=== PATIENT | male | born 1990 | race Hispanic/Latino ===

== ENCOUNTER 2023-06-30 08:09 | Emergency (ER) | payer OTHER ==
[~2023-06-30] VITALS: Ht 175.3 cm; Wt 86.2 kg
[2023-06-30] MEDS ORDERED: BACITRACIN 1 EACH PACKET TP ONE (08:58)
[2023-06-30] MEDS ORDERED: DIPH,PERTUSS(ACELL),TET VAC/PF 0.5 ML VIAL IM ONE (09:00)
[2023-06-30 09:50] VITALS: BP 137/71; PULSE 76; RESP 18; O2SAT 99
== END 2023-06-30 10:12 | disposition home or self-care (01) ==
LOC: EDH 08:09
DX: S61.411A Laceration without foreign body of right hand, initial encounter (principal); J45.909 Unspecified asthma, uncomplicated; W01.0XXA Fall on same level from slipping, tripping and stumbling without subsequent striking against object, initial encounter; Y93.E1 Activity, personal bathing and showering; Y92.89 Other specified places as the place of occurrence of the external cause; Y99.8 Other external cause status
CPT/HCPCS: 12002; 90471; 90715

== ENCOUNTER 2025-01-22 12:42 | Emergency (ER) | payer SELFPAY ==
[~2025-01-22] VITALS: Ht 172.7 cm; Wt 84.4 kg
--- NOTE | 2025-01-22 12:58 | ERN ---
General Chief Complaint: Ankle Problem Stated Complaint: RIGHT ANKLE SPRAIN Time Seen by MD: 12:45 Time Seen by Midlevel: 12:45 Source: patient History of Present Illness Initial Comments The patient is a 34-year-old male presenting to the emergency department with right ankle pain. The patient states he accidentally rolled his right ankle. T his morning his pain increased and was unable to bear weight is a wanted further evaluation. Denies any other injury Allergies: Coded Allergies: No Known Drug Allergies (Unverified Allergy, Unknown, 06/30/23) Past Medical History Past Medical History: No Pertinent History, Asthma Past Surgical History: None ROS Dictation CONSTITUTIONAL: Negative except for HPI HEAD/FACE: Negative except for HPI EENT: Negative except for HPI RESPIRATORY: Negative except for HPI GASTROINTESTINAL/ABDOMINAL: Negative except for HPI GENITOURINARY: Negative except for HPI MUSCULOSKELETAL: Negative except for HPI INTEGUMENTARY: Negative except for HPI NEUROLOGICAL/PSYCH: Negative except for HPI HEMATOLOGIC/LYMPHATIC: Negative except for HPI All Systems Negative, Except as noted above. 13 point review of systems assessed and all negative except for above. Physical Exam Physical Exam Dictation Vital Signs reviewed General Appearance: Alert, oriented x 3, no acute distress, well developed, nourished. Head and Face: non-traumatic. Eyes: PERRL, pink conjunctivas, eyelid no trauma, anterior chamber with arcus senilis. Ears: Pinnas intact and no signs of trauma or erythema ear canals clear and no discharge TM no erythema Nose: No discharge, no bleeding. Oropharynx: Mouth normal, tongue pink, pharynx clear,no erythema, tonsils no exudates, no abscesses noted, mucous membrane moist Neck: Supple, non-tender, no thyromegaly, no masses, no JVD, no bruits Breast:Deferred Chest:No tenderness, no crepitus, no paradoxical movement, no retractions Lungs:Clear, well-ventilated, symmetric, no rales, no wheezing, no rhonchi, no stridor, good breath sounds bilaterally Heart: Regular rate, regular rhythm, no murmur, no gallops Vascular: no peripheral edema, Abdomen: Soft, positive bowel sounds, nondistended, no guarding, nontender, no rebound, no masses no hepatomegaly, no splenomegaly, no Cotton's sign, no hernias. Rectal: Deferred Genital: Deferred Neurological: Normal speech, motor function intact, sensory function intact Musculoskeletal: Neck nontender, full range of motion, back nontender, full range of motion, Extremities: Tenderness over the right lateral malleolus, normal capillary refill, 2+ DP, PT pulses Skin: Color pink, dry, no turgor, no rash, no lacerations, no abrasions, no contusions. Lymphatic: Deferred MDM Patient is a 34-year-old male presenting to the ER with right ankle pain following an eversion injury. He has some tenderness over the right lateral malleolus however extremity is neurovascularly intact with normal capillary refill. X-ray of the right ankle and right foot does not show any evidence of an acute fracture or dislocation. The patient will be discharged home with supportive management ED Course Orders Procedure Category Date Status Time Ankle Comp 3vws Rt RAD 01/22/25 Resulted 12:52 Foot Comp 3+Vws Rt RAD 01/22/25 Resulted 12:52 Apply Raffi Wrap (Er) CPOE 01/22/25 Transmitted 13:58 Crutches SHARIF 01/22/25 Complete 13:58 Vital Signs Date Time Temp Pulse Resp B/P (MAP) Pulse Ox O2 Delivery O2 Flow Rate FiO2 01/22/25 14:05 97.7 54 14 148/87 98 Room Air* 0 21 01/22/25 12:46 97.7 54 14 148/83 98 Room Air 0 [facility] [address] [place] [address] [id number] IMAGING REPORT Signed PATIENT: STEPHANIE GARCIA MR#: [id number] : 1990 SEX: M AGE: 34 LOCATION: [facility] ORDER 125 STATUS: REG ER [facility] REPORT#: [id number] SERVICE 1252 REASON: r/o fracture ORDERING PHYSICIAN: MANNY DU PROCEDURE: FT 3VW RT - FOOT COMP 3+VWS RT FOOT COMP 3+VWS RT HISTORY: Fracture COMPARISON: None TECHNIQUE: 3 images of right shoulder were obtained. FINDINGS: There is no acute displaced fracture or dislocation. Minimal degenerative changes are seen. IMPRESSION: 1. Findings as described above. DICTATED BY: BRANDON BARBOUR MD DATE: 01/22/251342 ELECTRONICALLY SIGNED BY: BRANDON BARBOUR MD DATE: 01/22/251345 [address] [address] IMAGING REPORT Signed PATIENT: STEPHANIE GARCIA MR#: [id number] : 1990 SEX: M AGE: 34 LOCATION: [facility] ORDER 125 STATUS: REG ER REPORT#: [id number] SERVICE 51 REASON: r/o fracture ORDERING PHYSICIAN: MANNY DU PROCEDURE: ANY4SOO - ANKLE COMP 3VWS RT ANKLE COMP 3VWS RT HISTORY: Fracture COMPARISON: None TECHNIQUE: 3 images of the right ankle were obtained. FINDINGS: There is no acute displaced fracture or dislocation. There is soft tissue swelling. Degenerative changes are seen. IMPRESSION: 1. Findings as described above. DICTATED BY: BRANDON BARBOUR MD DATE: 01/22/251340 ELECTRONICALLY SIGNED BY: BRANDON BARBOUR MD DATE: 01/22/251344 DX & DISP Disposition: Discharge Departure Impression: Primary Impression: Right ankle sprain Condition: Stable Additional Instructions: Your x-ray of the right ankle and right foot did not show any evidence of an acute fracture or dislocation. Continue with Tylenol and Motrin as needed. Referrals: SELF,REFERRAL (PCP) Time of Disposition: 13:55 I have reviewed the case, and I agree with, Diagnosis and Plan I performed the substantive portion of the visit. I have reviewed and per sonally made and approve the management plan that is documented in the note by myself or the ENRICO. I acknowledge for responsibility for the patient's management plan. MANNY DU January 22, 2025 12:58 ZEINA LANCE DO January 24, 2025 06:26
--- NOTE | 2025-01-22 13:45 | HMCIMG ---
ANKLE COMP 3VWS RT HISTORY: Fracture COMPARISON: None TECHNIQUE: 3 images of the right ankle were obtained. FINDINGS: There is no acute displaced fracture or dislocation. There is soft tissue swelling. Degenerative changes are seen. IMPRESSION: 1. Findings as described above.
--- NOTE | 2025-01-22 13:46 | HMCIMG ---
FOOT COMP 3+VWS RT HISTORY: Fracture COMPARISON: None TECHNIQUE: 3 images of right shoulder were obtained. FINDINGS: There is no acute displaced fracture or dislocation. Minimal degenerative changes are seen. IMPRESSION: 1. Findings as described above.
[2025-01-22 14:05] VITALS: BP 148/87; PULSE 54; RESP 14; TEMP 97.7; O2SAT 98
--- NOTE | 2025-01-22 14:11 | NUR ---
PT REFUSED CRUTCHES, PT STATES HE CAN WALK W/O CRUTCHES
== END 2025-01-22 14:16 | disposition home or self-care (01) ==
LOC: EDH 12:42
DX: S93.401A Sprain of unspecified ligament of right ankle, initial encounter (principal); X50.1XXA Overexertion from prolonged static or awkward postures, initial encounter; Y93.89 Activity, other specified; Y92.89 Other specified places as the place of occurrence of the external cause; Y99.8 Other external cause status
CPT/HCPCS: 73610; 73630; 99284